=== PATIENT | male | born 1990 | race Two or more races ===

== ENCOUNTER 2020-01-03 01:59 | Emergency (ER) | payer SELFPAY ==
[~2020-01-03] VITALS: Ht 170.2 cm; Wt 56.8 kg
[2020-01-03 02:03] VITALS: BP 135/72
== END 2020-01-03 04:03 | disposition home or self-care (01) ==
LOC: ED 02:29
DX: L03.116 Cellulitis of left lower limb (principal)
CPT/HCPCS: 99283